=== PATIENT | female | born 1985 | race African-American/Black ===

== ENCOUNTER 2016-05-31 10:49 | Outpatient (CLI) | payer BC, OTHER ==
[~2016-05-31] VITALS: Ht 162.6 cm; Wt 112.3 kg
[~2016-05-31 10:49] MED LIST: ACET325T33 PO; BEN25 PO
[2016-05-31 11:13] VITALS: Ht 162.6 cm; Wt 112.3 kg
[2016-05-31 11:14] VITALS: BP 122/67; PULSE 91; RESP 18
[2016-05-31 12:41] LABS: ADD SCAN DIFF NO
[2016-05-31 12:46] LABS: BASOPHILS % 0.1 % (0.0-2.0); EOSINOPHILS # 0.1 10^3/ul (0.0-0.5); EOSINOPHILS % 1.4 % (0.0-7.0); HEMATOCRIT 35.8 % (37.0-47.0); LYMPHOCYTES # 1.9 10^3/ul (0.8-2.9); LYMPHOCYTES % 24.7 % (15.0-51.0); MEAN CORPUSCULAR HEMOGLOBIN 30.9 pg (29.0-33.0); MEAN CORPUSCULAR HGB CONC 33.5 g/dl (32.0-37.0); MEAN CORPUSCULAR VOLUME 92.3 fl (82.0-101.0); MEAN PLATELET VOLUME 9.7 fl (7.4-10.4); MONOCYTE # 0.7 10^3/ul (0.3-0.9); MONOCYTES % 9.5 % (0.0-11.0); NEUTROPHIL # 4.8 10^3/ul (1.6-7.5); NEUTROPHILS % 62.5 % (39.0-77.0); PLATELET COUNT 279 10^3/UL (140-415); RED BLOOD COUNT 3.88 10^6/ul (4.20-5.40); RED CELL DISTRIBUTION WIDTH 12.9 % (11.5-14.5); WHITE BLOOD COUNT 7.6 10^3/ul (4.8-10.8)
--- NOTE | 2016-05-31 14:01 | RADRPT ---
PROCEDURE: US OB biophysical profile. CLINICAL INDICATION: decreased movements, contractions TECHNIQUE: Multiple sonographic images of the pelvis were obtained. The images were reviewed on a PACS workstation. COMPARISON: No prior studies are available for comparison. FINDINGS: There is a single viable intrauterine gestation. Cardiac activity is present with 148 beats per min three affiliated. There is a vertex presentation. The placenta is posterior. There is no evidence of placental abruption. There is a normal amount of amniotic fluid with an RANDY = 11.2 cm. Biophysical profile: movement 2/2 tone 2/2. breathing 2/2 RANDY 2/2 Total 09/25 RPTAT: AA . IMPRESSION: Normal biophysical profile. . .Clive Haley MD, MD Date Time Electronically viewed and signed by .Clive Haley MD, MD on 05/31/2016 14:01 .S/
--- NOTE | 2016-05-31 16:59 | CONS ---
Date/Time of Note Date/Time of Note DATE: 05/31/16 TIME: 16:50 Consultation Date/Type/Reason Admit Date/Time May 31, 2016 OB triage consult Reason for Consultation This patient is a 22 years old 3 para 1 1 with EDC of 2016 which makes her 29 weeks and 03 . This patient had a history of preeclampsia and underwent a primary section at 36 weeks gestation . According to patient due to this history her senior physician [facility]. another reason for not being followed by previous Ob was the change of her insurance policy. She is also complaining of contractions and cold symptoms . On examination she is a well-developed well-nourished -[place] lady in no acute distress Her ear nose throat appears to be normal neck is normal no neck vein distention no thyromegaly no lymph node enlargement On auscultation of the chest she does have few rales both lung base. Heart is normal sinus rhythm no murmur Abdomen is soft. She is having very rare contractions . Normal movement heart rate is normal with good variability and occasional acceleration no deceleration No CVA tenderness as I mentioned abdomen is generally soft Fetus appears to be in vertex presentation On pelvic examination she has fairly severe candidal vaginitis with cheesy vaginal discharge.Cervix is closed long no bleeding Lower extremities normal her knee-jerk reflexes 1+ no edema no varicosities Due to the fact that she did not have any related workup so far lab and ultrasound study was ordered. Her blood type is O Rh+ serum glucose level 81. Her CBC was basically normal except for slight anemia hemoglobin 12 hematocrit 35.8 WBC 7.6 and platelet of 279,000 On ultrasound study a single viable intrauterine gestation with cardiac activity 148 bpm in vertex presentation report placenta was posterior and no evidence of placental previa or abruption. amniotic fluid index was reported 11.2 cm biophysical profile 09/25 Constitutional: No chills, No diaphoresis, No disoriented, No febrile, No improved, No no complaints, No other, No poor po, No requiring IVF, No requiring O2 Eyes: No discharge, No no complaints, No other, No pain, No redness, No visual change ENT: No bleeding, No congestion, No discharge, No dysphagia, No no complaints, No other, No pain, No sore throat Respiratory: other (On listening to the lungs she does have a few rales), No cough, No no complaints, No pain, No pleuritic pain, No shortness of breath, No sputum, No wheezing Cardiovascular: other (Heart normal sinus rhythm no murmur), No chest pain, No edema, No lightheadedness, No no complaints, No orthopenea , No palpitations, No paroxysmal nocturnal dyspnea Gastrointestinal: No blood, No constipation, No decreased appetite, No diarrhea , No flatus, No nausea, No no complaints, No other, No pain, No passing stool, No vomiting Genitourinary: other (Fairly severe candidal type discharge on examination cervix was closed and thick as I mentioned before), No bleeding, No discharge, No dysuria, No flank pain, No hematuria, No no complaints Musculoskeletal: No back pain, No bone/joint pain, No neck pain, No no complaints, No other, No restricted range of motion, No swelling Skin: No bruising, No erythema, No laceration, No no complaints, No other, No pruritis, No rash, No skin lesions Neurologic: other (Knee-jerk reflex was 1+), No confusion, No dizziness, No focal-weakness, No headache, No no complaints , No seizure, No syncope Lymphatic: No adenopathy, No lymphadema, No no complaints, No other, No tender nodes Psychological: No anxiety, No confusion, No depression, No nl mood/affect, No no complaints, No other, No suicidal Additional Comments Her complete blood and ultrasound studies were negative Patient was advised to call her insurance and obtain the name of of a contracted senior physician and continue her care including timely lab works. She is 29 weeks ad need to have GTT. Laboratory Tests Test 05/31/16 12:00 White Blood Count 7.610^3/ul Red Blood Count 3.8810^6/ul Hemoglobin 12.0g/dl Hematocrit 35.8% Mean Corpuscular Volume 92.3fl Mean Corpuscular Hemoglobin 30.9pg Mean Corpuscular Hemoglobin Concent 33.5g/dl Red Cell Distribution Width 12.9% Platelet Count 04558^3/UL Mean Platelet Volume 9.7fl Neutrophils % 62.5% Lymphocytes % 24.7% Monocytes % 9.5% Eosinophils % 1.4% Basophils % 0.1% Nucleated Red Blood Cells % 0.0/100WBC Neutrophils # 4.810^3/ul Lymphocytes # 1.910^3/ul Monocytes # 0.710^3/ul Eosinophils # 0.110^3/ul Basophils # 0.010^3/ul Nucleated Red Blood Cells # 0.010^3/ul Glucose Level 81mg/dl Hepatitis B Surface Antigen NEGATIVE HIV (1&2) Antibody NEGATIVE Social History Smoking Status: Never smoker Exam/Review of Systems Vital Signs Vitals Vital Signs Date Time Temp Pulse Resp B/P Pulse Ox O2 Delivery O2 Flow Rate FiO2 05/31/16 11:14 97.8 91 18 122/67 Room Air Results Result Diagram: 05/31/16 1200 05/31/16 1200 Results 24 hrs Laboratory Tests Test 05/31/16 12:00 White Blood Count 7.6 Red Blood Count 3.88 L Hemoglobin 12.0 Hematocrit 35.8 L Mean Corpuscular Volume 92.3 Mean Corpuscular Hemoglobin 30.9 Mean Corpuscular Hemoglobin Concent 33.5 Red Cell Distribution Width 12.9 Platelet Count 279 Mean Platelet Volume 9.7 Neutrophils % 62.5 Lymphocytes % 24.7 Monocytes % 9.5 Eosinophils % 1.4 Basophils % 0.1 Nucleated Red Blood Cells % 0.0 Neutrophils # 4.8 Lymphocytes # 1.9 Monocytes # 0.7 Eosinophils # 0.1 Basophils # 0.0 Nucleated Red Blood Cells # 0.0 Glucose Level 81 Hepatitis B Surface Antigen NEGATIVE HIV (1&2) Antibody NEGATIVE ELO LUJAN MD May 31, 2016 16:59
[2016-06-02 13:29] LABS: RUBELLA ANTIBODY - IGG 1.89 index
== END 2016-05-31 14:50 | disposition home or self-care (01) ==
LOC: OBT 10:49 → L-D 10:49 → OBT 14:50
DX: O62.9 Abnormality of forces of labor, unspecified (principal); O26.893 Other specified pregnancy related conditions, third trimester; J00 Acute nasopharyngitis [common cold]; Z3A.29 29 weeks gestation of pregnancy
CPT/HCPCS: 36415; 76818; 82947; 85025; 86592; 86703; 86762; 86900; 86901; 87340; Z7500; G0463